=== PATIENT | male | born 1965 | race Caucasian/White ===

== ENCOUNTER 2018-12-07 08:34 | Emergency (ER) | payer OTHER ==
[2018-12-07 08:43] VITALS: TEMP 98.2
[2018-12-07] MEDS ORDERED: SODIUM CHLORIDE 0.9% 1,000 ML IV STA (09:09)
--- NOTE | 2018-12-07 09:14 | ED ---
General Adult HPI - General Chief complaint: Chest Pain Stated complaint: chest pain Time Seen by Provider: 12/07/18 08:40 Source: patient, RN notes reviewed Mode of arrival: wheelchair Limitations: no limitations - History of Present Illness Initial comments: This is a 53-year-old male who presents emergency Department with no significant past medical history. Patient is a smoker and a daily drinker. Patient has been working 7 days a week for 6 months. Patient went to work on Wednesday morning was fine however Wednesday did not show up for work for this morning his boss came to his house to see what was going on. Patient states he doesn't really r emember much of yesterday other than he couldn't get adequate sleep and he thought it was nighttime all day and he doesn't remember not going to work. Patient has had a bloody nose over the last day he also has an abrasion to the right parietal region of the scalp patient also has a scabbed over abrasion on his right hip. Patient complains of right-sided lateral chest pain. Patient states it doesn't hurt that much when he rests on it but it hurts for him to take deep breaths per patient denies any anterior chest pain. Patient states he's a little short of breath because the pain. Patient denies any fever chills per patient denies any vomiting or diarrhea. Patient is alert and oriented 3 currently the is somewhat confused as to what was going on yesterday and it sounds as though he was having hard time sleeping and Waking up and never really thinking it would daytime only thinking it was still a little tonight and Trying to go back to bed. - Related Data Home Medications Medication Instructions Recorded Confirmed No Known Home Medications 12/07/18 12/07/18 Allergies Allergy/AdvReac Type Severity Reaction Status Date / Time No Known Allergies Allergy Verified 12/07/18 08:57 Review of Systems ROS Statement: Those systems with pertinent positive or pertinent negative responses have been documented in the HPI. ROS Other: All systems not noted in ROS Statement are negative. Past Medical History Past Medical History: No Reported History History of Any Multi-Drug Resistant Organisms: None Reported Past Surgical History: No Surgical Hx Reported Past Psychological History: No Psychological Hx Reported Smoking Status: Current every day smoker Past Alcohol Use History: Occasional Past Drug Use History: Marijuana General Exam - General Exam Comments Initial Comments: GENERAL: Patient is well-developed and well-nourished. Patient is nontoxic and well- hydrated and is in mild distress. ENT: Neck is soft and supple. No significant lymphadenopathy is noted. Oropharynx is clear. Moist mucous membranes. Neck has full range of motion without eliciting any pain. EYES: The sclera were anicteric and conjunctiva were pink and moist. Extraocular movements were intact and pupils were equal round and reactive to light. Eyelids were unremarkable. PULMONARY: Patient has rhonchi in the right base CARDIOVASCULAR: There is a regular rate and rhythm without any murmurs gallops or rubs. ABDOMEN: Soft and nontender with normal bowel sounds. No palpable organomegaly was noted. There is no palpable pulsatile mass. SKIN: Patient has a superficial abrasion to the right parietal region of the scalp. Patient has a scabbed over abrasion to the right hip. NEUROLOGIC: Patient is alert and oriented x3. Cranial nerves II through XII are grossly intact. Motor and sensory are also intact. Normal speech, volume and content. Symmetrical smile. MUSCULOSKELETAL: Normal extremities with adequate strength and full range of motion. No lower extremity swelling or edema. No calf tenderness. LYMPHATICS: No significant lymphadenopathy is noted PSYCHIATRIC: Normal psychiatric evaluation. Limitations: no limitations Course Vital Signs 12/07/18 12/07/18 12/07/18 08:39 09:00 09:30 Temperature 98.2 F Pulse Rate 61 56 L 57 L Respiratory 18 12 12 Rate Blood Pressure 127/80 135/81 132/78 O2 Sat by Pulse 99 99 100 Oximetry 12/07/18 12/07/18 10:00 10:30 Temperature Pulse Rate 62 56 L Respiratory 12 13 Rate Blood Pressure 150/96 141/77 O2 Sat by Pulse 100 99 Oximetry Medical Decision Making - Medical Decision Making EKG shows normalinus bradycardia at 56 bpm [place] interval is 118 QRS is 94 Q-T intervals 428 QTC is 413. Patient's EKG shows no ST segment elevation or depression or T-wave abnormalities noted. Chest x-ray shows right-sided rib fracture and pneumothorax about 20%. I spoke with cardiothoracic surgery and they will did not want a chest tube or for event at this time. Patient's CT of the C-spine which is negative. Patient's CT of the brain which shows a subarachnoid hemorrhage. I spoke with Dr. Correa we ordered a CTA to rule out aneurysm Dr. Landrum is called me back and indicated he did not see any aneurysm. I spoke with Dr. Desouza at [facility] she accepted the transfer the patient I did indicate to her that this point time we did not have a sore event or a chest tube in place but the patient was satting 100% on a couple liters of oxygen - Lab Data Result diagrams: 12/07/18 09:14 12/07/18 09:14 Lab Results 12/07/18 12/07/18 12/07/18 Range/Units 09:14 09:14 09:14 WBC 13.4 H (3.8-10.6) k/uL RBC 4.72 (4.30-5.90) m/uL Hgb 15.2 (13.0-17.5) gm/dL Hct 44.3 (39.0-53.0) % MCV 93.9 (80.0-100.0) fL MCH 32.1 (25.0-35.0) pg MCHC 34.2 (31.0-37.0) g/dL RDW 13.3 (11.5-15.5) % Plt Count 171 (150-450) k/uL Neutrophils % 86 % Lymphocytes % 5 % Monocytes % 7 % Eosinophils % 0 % Basophils % 0 % Neutrophils # 11.5 H (1.3-7.7) k/uL Lymphocytes # 0.7 L (1.0-4.8) k/uL Monocytes # 1.0 (0-1.0) k/uL Eosinophils # 0.0 (0-0.7) k/uL Basophils # 0.0 (0-0.2) k/uL PT 11.1 (9.0-12.0) sec INR 1.0 (<1.2) APTT 26.3 (22.0-30.0) sec Sodium 140 (137-145) mmol/L Potassium 4.4 (3.5-5.1) mmol/L Chloride 107 (98-107) mmol/L Carbon Dioxide 25 (22-30) mmol/L Anion Gap 8 mmol/L BUN 20 (9-20) mg/dL Creatinine 0.67 (0.66-1.25) mg/dL Est GFR (CKD-EPI)AfAm >90 (>60 ml/min/1.73 sqM) Est GFR (CKD-EPI)NonAf >90 (>60 ml/min/1.73 sqM) Glucose 142 H (74-99) mg/dL Calcium 9.2 (8.4-10.2) mg/dL Magnesium 2.1 (1.6-2.3) mg/dL Total Bilirubin 0.9 (0.2-1.3) mg/dL AST 38 (17-59) U/L ALT 36 (21-72) U/L Alkaline Phosphatase 74 (38-126) U/L Troponin I (0.000-0.034) ng/mL Total Protein 6.2 L (6.3-8.2) g/dL Albumin 3.9 (3.5-5.0) g/dL Serum Alcohol <10 mg/dL 12/07/18 Range/Units 09:14 WBC (3.8-10.6) k/uL RBC (4.30-5.90) m/uL Hgb (13.0-17.5) gm/dL Hct (39.0-53.0) % MCV (80.0-100.0) fL MCH (25.0-35.0) pg MCHC (31.0-37.0) g/dL RDW (11.5-15.5) % Plt Count (150-450) k/uL Neutrophils % % Lymphocytes % % Monocytes % % Eosinophils % % Basophils % % Neutrophils # (1.3-7.7) k/uL Lymphocytes # (1.0-4.8) k/uL Monocytes # (0-1.0) k/uL Eosinophils # (0-0.7) k/uL Basophils # (0-0.2) k/uL PT (9.0-12.0) sec INR (<1.2) APTT (22.0-30.0) sec Sodium (137-145) mmol/L Potassium (3.5-5.1) mmol/L Chloride (98-107) mmol/L Carbon Dioxide (22-30) mmol/L Anion Gap mmol/L BUN (9-20) mg/dL Creatinine (0.66-1.25) mg/dL Est GFR (CKD-EPI)AfAm (>60 ml/min/1.73 sqM) Est GFR (CKD-EPI)NonAf (>60 ml/min/1.73 sqM) Glucose (74-99) mg/dL Calcium (8.4-10.2) mg/dL Magnesium (1.6-2.3) mg/dL Total Bilirubin (0.2-1.3) mg/dL AST (17-59) U/L ALT (21-72) U/L Alkaline Phosphatase (38-126) U/L Troponin I <0.012 (0.000-0.034) ng/mL Total Protein (6.3-8.2) g/dL Albumin (3.5-5.0) g/dL Serum Alcohol mg/dL Critical Care Time Critical Care Time: Yes Total Critical Care Time: 35 Disposition Clinical Impression: Subarachnoid hemorrhage, Pneumothorax, Rib fracture Disposition: OTHER INSTITUTION NOT DEFINED Referrals: None,Stated [Primary Care Provider] - 1-2 days Time of Disposition: 11:51 - Out of Hospital Transfer - Req. Specs Out of Hospital Transfer - Requested Specifics: Other Emergency Center ([facility])
[2018-12-07 09:37] LABS: Basophils % (A) 0 %; Eosinophils % (A) 0 %; HCT 44.3 % (39.0-53.0); HGB 15.2 gm/dL (13.0-17.5); Lymphocytes # (A) 0.7 k/uL (1.0-4.8); Lymphocytes % (A) 5 %; MCH 32.1 pg (25.0-35.0); MCHC 34.2 g/dL (31.0-37.0); MCV 93.9 fL (80.0-100.0); Mean Platelet Volume 7.5; Monocytes % (A) 7 %; Neutrophils # (A) 11.5 k/uL (1.3-7.7); Neutrophils % (A) 86 %; Platelet Count 171 k/uL (150-450); RBC 4.72 m/uL (4.30-5.90); RDW 13.3 % (11.5-15.5); WBC 13.4 k/uL (3.8-10.6)
[2018-12-07 09:46] LABS: Partial Thromboplastin Time 26.3 sec (22.0-30.0); Prothrombin Time 11.1 sec (9.0-12.0)
[2018-12-07 09:47] LABS: ALT 36 U/L (21-72); AST 38 U/L (17-59); Albumin 3.9 g/dL (3.5-5.0); Alcohol <10 mg/dL; Alkaline Phosphatase 74 U/L (38-126); Anion Gap 8 mmol/L; Blood Urea Nitrogen 20 mg/dL (9-20); Calcium 9.2 mg/dL (8.4-10.2); Carbon Dioxide 25 mmol/L (22-30); Chloride 107 mmol/L (98-107); Glucose 142 mg/dL (74-99); Magnesium 2.1 mg/dL (1.6-2.3); Potassium 4.4 mmol/L (3.5-5.1); Sodium 140 mmol/L (137-145); Total Bilirubin 0.9 mg/dL (0.2-1.3); Total Protein 6.2 g/dL (6.3-8.2)
--- NOTE | 2018-12-07 09:56 | XR ---
EXAMINATION TYPE: XR chest 2V DATE OF EXAM: 12/07/2018 COMPARISON: NONE TECHNIQUE: PA and lateral views submitted. HISTORY: Chest pain, shortness of breath FINDINGS: The lungs are clear and there is no pneumothorax, pleural effusion, or focal pneumonia. Hyperinflat ion suggests COPD and there is a right-sided pneumothorax measuring approximately 20%. There are frac tures involving the lateral margin of the right fourth fifth and possibly sixth rib. IMPRESSION: 1. There is a 20% right-sided pneumothorax with multiple right-sided rib fractures.
--- NOTE | 2018-12-07 10:42 | CT ---
EXAMINATION TYPE: CT brain lucius gorman DATE OF EXAM: 12/07/2018 COMPARISON: 04/21/2013 HISTORY: Pain CT DLP: 1536.4 mGycm, Automated exposure control for dose reduction was used. CONTRAST: None CT of the brain is performed utilizing 3 mm thick sections through the posterior fossa and 3 mm thick sections through the remaining calvarium. Study is performed within 24 hours of arrival to the hospital. There is hyperintensity in the lateral middle cranial fossa. Appears to be extra-axial. Consider mid dle cranial artery cerebral aneurysm as a source. This could be intraparenchymal with decompression into the subarachnoid space. Punctate hyperdense area is adjacent to the left parietal lobe. Series 201 image 36. Findings are compatible with acute subarachnoid hemorrhage. There does appear to be diana e mild edema within the temporal lobe. There is effacement of the left temporal horn lateral ventricl e. No hydrocephalus is evident. No mass lesion is evident. No acute infarcts are evident. Ventricles and sulci are otherwise appropriate for the patient age. Air-fluid levels within the sphenoid sinus. Correlate for sinusitis. IMPRESSIONS: 1. Left temporal middle cranial fossa subarachnoid hemorrhage. Report was called to Dr. Velasco by Dr. Richard shah by telephone 1039 hours 12/07/2018. 2. Sphenoid sinusitis CT cervical spine. COMPARISON: None CT of the cervical spine is performed in the axial plane at 2 mm thick sections. Reconstructed image s in the coronal, and sagittal plane are reviewed on the computer. No acute fractures are evident. Vertebral body alignment is normal. Small anterior vertebral body spurs are present in the mid cervic al spine. Disc heights are preserved. Vertebral body heights are preserved. No spinal canal stenosis is evident. No neural foraminal stenosis is evident. Emphysematous blebs and bulla are noted within the lung apices. There appears to be a right-sided pne umothorax. IMPRESSIONS: 1. No acute fractures cervical spine. 2. Right-sided pneumothorax. Report was called to Dr. Velasco by Dr. Puente by telephone 1039 hours 12/07/2018.
--- NOTE | 2018-12-07 11:55 | CT ---
EXAMINATION TYPE: CT angio head neck DATE OF EXAM: 12/07/2018 HISTORY: Subarachnoid bleed COMPARISON: CT brain performed earlier same date CT DLP: 400.7 mGycm. Automated Exposure Control for Dose Reduction was Utilized. TECHNIQUE: CTA scan of the neck is performed with IV Contrast, patient injected with 65 mL of Isovue 370, axial images are obtained, coronal and sagittal reformatted images are reviewed. Three-D recons tructed images are created on an independent workstation and reviewed. FINDINGS: Carotid/Vascular Structures: There is a three-vessel arch. Vertebral arteries are codominant. Common carotid arteries bifurcate normally into internal and external carotid arteries. No significant flow- limiting stenosis is evident. [place]: Vertebral basilar system appears normal. Posterior cerebral vasculature is normal. The internal carotid arteries bifurcate normally into A1 and M1 segments. The A2 segments appear norm al. Anterior communicating artery is not clearly identified on source images. No definite suspicious abnormality to suggest aneurysm is identified on source images. No current extravasation of contrast is evident. Other: Three-D reconstructed images performed by the technologist are reviewed on the computer. The c aliber of the right M1 segment and branches appear smaller than the contralateral left side. This is of uncertain clinical significance. Source images appears more symmetrical. IMPRESSION: 1. No suspicious aneurysm left middle cranial fossa region. 2. Normal carotid bifurcations.
[2018-12-07 12:36] VITALS: BP 143/81; PULSE 57; RESP 15
== END 2018-12-07 12:43 | disposition other institution (70) ==
LOC: EC 08:34
DX: S06.6X9A Traumatic subarachnoid hemorrhage with loss of consciousness of unspecified duration, initial encounter (principal); S22.41XA Multiple fractures of ribs, right side, initial encounter for closed fracture; S27.0XXA Traumatic pneumothorax, initial encounter; S70.211A Abrasion, right hip, initial encounter; R00.1 Bradycardia, unspecified; F17.200 Nicotine dependence, unspecified, uncomplicated
CPT/HCPCS: 36415; 93005; 80053; 83735; 84484; 85025; 85610; 85730; 80320; 71046; 72125; 70496; 70450; 70498; 99291; 96360; Q9967